=== PATIENT | male | born 1965 | race Caucasian/White ===

== ENCOUNTER 2018-05-31 13:58 | Inpatient (IN) | payer OTHER ==
[~2018-05-31] VITALS: Ht 172.7 cm; Wt 104.3 kg
[2018-05-31] MEDS ORDERED: JARDIANCE25 MG PO (14:15)
[2018-05-31] MEDS ORDERED: VICTOZA 3-0.6 MG/0.1 SQ (14:16)
[2018-05-31] MEDS ORDERED: TOPROL XL50 MG PO (14:16)
[2018-05-31] MEDS ORDERED: LISINOPRIL20 MG PO (14:16)
[2018-05-31] MEDS ORDERED: ADULT ASPIRIN81 MG PO (14:17)
[2018-05-31] MEDS ORDERED: FORTAMET1000 MG PO (14:17)
[2018-05-31] MEDS ORDERED: PRAVASTATIN SOD40 MG PO (14:17)
[2018-06-05] MEDS ORDERED: INVANZ1 GM IV (06:56)
== END 2018-06-05 11:02 | disposition home health service (06) | DRG 572 ==
LOC: ER 13:58 → MEDI 19:08 → SEC-K 19:08 → MEDI 20:33 → MEDJ 06-01 18:55
PROVIDERS: Specialist
PROC: 5A09557 Assistance with Respiratory Ventilation, Greater than 96 Consecutive Hours, Continuous Positive Airway Pressure (ICD-10-PCS; 2018-05-31)
PROC: 8E0ZXY6 Isolation (ICD-10-PCS; 2018-06-01)
PROC: 0JBP0ZZ Excision of Left Lower Leg Subcutaneous Tissue and Fascia, Open Approach (ICD-10-PCS; principal; 2018-06-01 12:00)
PROC: 02HV33Z Insertion of Infusion Device into Superior Vena Cava, Percutaneous Approach (ICD-10-PCS; 2018-06-04)
DX: L97.828 Non-pressure chronic ulcer of other part of left lower leg with other specified severity (principal); B96.29 Other Escherichia coli [E. coli] as the cause of diseases classified elsewhere; Z16.12 Extended spectrum beta lactamase (ESBL) resistance; E66.8 Other obesity; I10 Essential (primary) hypertension; E11.9 Type 2 diabetes mellitus without complications; Z95.1 Presence of aortocoronary bypass graft

== ENCOUNTER 2022-01-27 15:08 | Inpatient (IN) | payer OTHER ==
[~2022-01-27] VITALS: Ht 172.7 cm; Wt 113.4 kg
[~2022-01-27 15:08] MED LIST: ADULT ASPIRIN81 MG PO; FORTAMET1000 MG PO; INVANZ1 GM IV; JARDIANCE25 MG PO; LISINOPRIL20 MG PO; PRAVASTATIN SOD40 MG PO; TOPROL XL50 MG PO; VICTOZA 3-0.6 MG/0.1 SQ
[2022-02-08] MEDS ORDERED: CEPHALEXIN500 MG PO (14:09)
[2022-02-08] MEDS ORDERED: INTESTINEX680 M1 PO (14:09)
[2022-02-08] MEDS ORDERED: PRE PROTEIN 2030 ML PO (14:09)
[2022-02-08] MEDS ORDERED: BUMETANIDE1 MG PO (14:09)
[2022-02-08] MEDS ORDERED: FLUCONAZOLE100 MG PO (14:09)
[2022-02-08] MEDS ORDERED: CIPRO500 MG PO (14:09)
== END 2022-02-08 22:59 | disposition home or self-care (01) | DRG 809 ==
LOC: ER 15:08 → SEC-K 22:53 → SURH 22:53
PROVIDERS: ADMIT Internal Medicine; ATTEND Internal Medicine
PROC: 30233N1 Transfusion of Nonautologous Red Blood Cells into Peripheral Vein, Percutaneous Approach (ICD-10-PCS; principal; 2022-01-28)
PROC: 4A12X45 Monitoring of Cardiac Electrical Activity, Ambulatory, External Approach (ICD-10-PCS; 2022-01-28)
PROC: 3E10X8Z Irrigation of Skin and Mucous Membranes using Irrigating Substance (ICD-10-PCS; 2022-01-28)
PROC: B24BYZZ Ultrasonography of Heart with Aorta using Other Contrast (ICD-10-PCS; 2022-01-29)
PROC: 02H633Z Insertion of Infusion Device into Right Atrium, Percutaneous Approach (ICD-10-PCS; 2022-02-01)
DX: D61.810 Antineoplastic chemotherapy induced pancytopenia (principal); L97.819 Non-pressure chronic ulcer of other part of right lower leg with unspecified severity; L97.829 Non-pressure chronic ulcer of other part of left lower leg with unspecified severity; C90.00 Multiple myeloma not having achieved remission; E46 Unspecified protein-calorie malnutrition; T45.1X5A Adverse effect of antineoplastic and immunosuppressive drugs, initial encounter; D50.0 Iron deficiency anemia secondary to blood loss (chronic); D70.1 Agranulocytosis secondary to cancer chemotherapy; D61.818 Other pancytopenia; I83.018 Varicose veins of right lower extremity with ulcer other part of lower leg; I83.028 Varicose veins of left lower extremity with ulcer other part of lower leg; L89.159 Pressure ulcer of sacral region, unspecified stage; E11.51 Type 2 diabetes mellitus with diabetic peripheral angiopathy without gangrene; D63.0 Anemia in neoplastic disease; D64.9 Anemia, unspecified; G89.3 Neoplasm related pain (acute) (chronic); I11.9 Hypertensive heart disease without heart failure; I25.10 Atherosclerotic heart disease of native coronary artery without angina pectoris; E77.8 Other disorders of glycoprotein metabolism; E66.01 Morbid (severe) obesity due to excess calories; Z74.01 Bed confinement status; Z93.2 Ileostomy status; Z79.84 Long term (current) use of oral hypoglycemic drugs; Z79.4 Long term (current) use of insulin; Z53.29 Procedure and treatment not carried out because of patient's decision for other reasons

== ENCOUNTER 2022-04-15 19:44 | Inpatient (IN) | payer OTHER ==
[~2022-04-15] VITALS: Ht 172.7 cm; Wt 158.8 kg
[~2022-04-15 19:44] MED LIST changes: +BUMETANIDE1 MG PO; +CEPHALEXIN500 MG PO; +CIPRO500 MG PO; +FLUCONAZOLE100 MG PO; +INTESTINEX680 M1 PO; +PRE PROTEIN 2030 ML PO
[2022-04-15] MEDS ORDERED: NINLARO4 MG PO (20:12)
[2022-04-19] MEDS ORDERED: LANTUS SOL100 UNIT/1 (15:30)
[2022-04-19] MEDS ORDERED: ATORVASTATIN CA40 MG (15:30)
[2022-04-19] MEDS ORDERED: REVLIMID25 MG (15:30)
[2022-04-19] MEDS ORDERED: FOLIC ACID1 MG (15:30)
[2022-04-19] MEDS ORDERED: DEXAMETHASONE4 MG (15:30)
[2022-04-19] MEDS ORDERED: NINLARO4 MG (15:30)
[2022-04-19] MEDS ORDERED: BUMETANIDE1 MG (15:30)
[2022-04-19] MEDS ORDERED: ABATINEX680 MG (15:31)
[2022-04-19] MEDS ORDERED: FERROUS SULFAT325 MG (15:31)
[2022-04-19] MEDS ORDERED: CARVEDILOL6.25 M1 (15:31)
== END 2022-04-28 16:56 | disposition home or self-care (01) | DRG 812 ==
LOC: ER 19:44 → ICU-2 22:58 → MEDJ 04-20 11:13 → ICU-2 04-20 11:14 → MEDJ 04-21 16:15
PROVIDERS: ADMIT Internal Medicine; ATTEND Internal Medicine
PROC: 8E0ZXY6 Isolation (ICD-10-PCS; principal; 2022-04-16)
PROC: 30233N1 Transfusion of Nonautologous Red Blood Cells into Peripheral Vein, Percutaneous Approach (ICD-10-PCS; 2022-04-18)
PROC: 05HY33Z Insertion of Infusion Device into Upper Vein, Percutaneous Approach (ICD-10-PCS; 2022-04-18)
PROC: 4A12X4Z Monitoring of Cardiac Electrical Activity, External Approach (ICD-10-PCS; 2022-04-21)
DX: D50.0 Iron deficiency anemia secondary to blood loss (chronic) (principal); T83.518A Infection and inflammatory reaction due to other urinary catheter, initial encounter; N39.0 Urinary tract infection, site not specified; C90.00 Multiple myeloma not having achieved remission; D64.9 Anemia, unspecified; B96.1 Klebsiella pneumoniae [K. pneumoniae] as the cause of diseases classified elsewhere; D64.81 Anemia due to antineoplastic chemotherapy; L89.159 Pressure ulcer of sacral region, unspecified stage; L89.899 Pressure ulcer of other site, unspecified stage; E11.51 Type 2 diabetes mellitus with diabetic peripheral angiopathy without gangrene; E66.01 Morbid (severe) obesity due to excess calories; Z68.33 Body mass index [BMI] 33.0-33.9, adult; I11.9 Hypertensive heart disease without heart failure; Z74.01 Bed confinement status; Z53.29 Procedure and treatment not carried out because of patient's decision for other reasons; Z79.84 Long term (current) use of oral hypoglycemic drugs; Z93.3 Colostomy status

== ENCOUNTER 2022-10-04 17:07 | Inpatient (IN) | payer OTHER ==
[~2022-10-04] VITALS: Ht 172.7 cm; Wt 108.9 kg
[~2022-10-04 17:07] MED LIST changes: +ABATINEX680 MG; +ATORVASTATIN CA40 MG; +BUMETANIDE1 MG; +CARVEDILOL6.25 M1; +DEXAMETHASONE4 MG; +FERROUS SULFAT325 MG; +FOLIC ACID1 MG; +LANTUS SOL100 UNIT/1; +NINLARO4 MG; +NINLARO4 MG PO; +REVLIMID25 MG
--- NOTE | 2022-10-04 19:15 | NUR ---
SE RECIBE PTE ALERTA Y ORIENTADO X 3 ESFERAS SIN DIFICULTAD RESP EN AMBULANCIA POR ANEMIA REFERIDO POR DRA Cathy BRANDON.PTE CON MONAHAN TRAIDO DEL HOGAR QUE PRSENTA ORINA TAQUERIA,OSTOMIA EN LADO LT.SE LE OFRECE [place] MEDICO EL CUAL REFIERE ENTENDER IMCLUYENDO TRANSUSION E INDICA DESEA SE LE REALICE ELLEN LINEA CENTRAL ANTES DE [place] MEDICO.SE LE NOTIFICA A DR PARRA,SE REALIZA EKG PENDIENTE.
--- NOTE | 2022-10-04 23:01 | NUR ---
1045PM PTE AUTORIZA A LAZ MUESTRAS,SE REALIZA BAJO MEDIDAS ASEPTICAS.SE DESIRE TUBOS PILOTOS PARA 4 UNIDADES DE PRBC NOTIFICADAS A MS STEWART DE [facility] A[facility]ILIO M[facility]UO.
[2022-10-05] MEDS ORDERED: FUSION PLUS CA1 EACH (08:06)
[2022-10-05] MEDS ORDERED: OXYC1TAB9 (08:06)
[2022-10-05] MEDS ORDERED: SILVER SULFADIA50 GM (08:07)
[2022-10-05] MEDS ORDERED: PRE PROTEIN1 EACH (08:07)
== END 2022-10-08 13:19 | disposition home or self-care (01) | DRG 841 ==
LOC: ER 17:07 → SURH 21:17 → SEC-K 21:17 → SURH 10-05 01:27
PROVIDERS: ADMIT Internal Medicine; ATTEND Internal Medicine
PROC: 30233N1 Transfusion of Nonautologous Red Blood Cells into Peripheral Vein, Percutaneous Approach (ICD-10-PCS; principal; 2022-10-05)
PROC: 06HM33Z Insertion of Infusion Device into Right Femoral Vein, Percutaneous Approach (ICD-10-PCS; 2022-10-05)
DX: C90.00 Multiple myeloma not having achieved remission (principal); L97.818 Non-pressure chronic ulcer of other part of right lower leg with other specified severity; D63.0 Anemia in neoplastic disease; D63.1 Anemia in chronic kidney disease; D50.0 Iron deficiency anemia secondary to blood loss (chronic); I25.10 Atherosclerotic heart disease of native coronary artery without angina pectoris; I11.9 Hypertensive heart disease without heart failure; E78.5 Hyperlipidemia, unspecified; Z20.822 Contact with and (suspected) exposure to COVID-19; Z95.1 Presence of aortocoronary bypass graft; L08.89 Other specified local infections of the skin and subcutaneous tissue; B96.4 Proteus (mirabilis) (morganii) as the cause of diseases classified elsewhere; B95.61 Methicillin susceptible Staphylococcus aureus infection as the cause of diseases classified elsewhere; Z74.01 Bed confinement status; I87.2 Venous insufficiency (chronic) (peripheral); I73.9 Peripheral vascular disease, unspecified

== ENCOUNTER 2022-10-25 13:39 | Inpatient (IN) | payer OTHER ==
[~2022-10-25] VITALS: Ht 152.4 cm; Wt 136.1 kg
[~2022-10-25 13:39] MED LIST changes: +FUSION PLUS CA1 EACH; +OXYC1TAB9; +PRE PROTEIN1 EACH; +SILVER SULFADIA50 GM
[2022-10-27] MEDS ORDERED: SPIRONOLACTONE25 MG (08:26)
== END 2022-11-05 00:01 | disposition home or self-care (01) | DRG 871 ==
LOC: ER 13:39 → ICU-2 19:17 → ICU 19:17 → MEDJ 11-04 03:23 → ICU 11-04 07:25
PROVIDERS: ADMIT Internal Medicine; ATTEND Internal Medicine
PROC: 30233N1 Transfusion of Nonautologous Red Blood Cells into Peripheral Vein, Percutaneous Approach (ICD-10-PCS; principal; 2022-10-25)
PROC: 4A12X4Z Monitoring of Cardiac Electrical Activity, External Approach (ICD-10-PCS; 2022-10-25)
PROC: 3E0F7SF Introduction of Other Gas into Respiratory Tract, Via Natural or Artificial Opening (ICD-10-PCS; 2022-10-25)
PROC: 30233R1 Transfusion of Nonautologous Platelets into Peripheral Vein, Percutaneous Approach (ICD-10-PCS; 2022-10-28)
PROC: 06HM33Z Insertion of Infusion Device into Right Femoral Vein, Percutaneous Approach (ICD-10-PCS; 2022-10-31)
DX: A41.1 Sepsis due to other specified staphylococcus (principal); R57.1 Hypovolemic shock; R65.21 Severe sepsis with septic shock; D61.818 Other pancytopenia; B37.49 Other urogenital candidiasis; C90.00 Multiple myeloma not having achieved remission; N17.8 Other acute kidney failure; I25.810 Atherosclerosis of coronary artery bypass graft(s) without angina pectoris; Z68.42 Body mass index [BMI] 45.0-49.9, adult; L03.116 Cellulitis of left lower limb; E87.1 Hypo-osmolality and hyponatremia; A41.89 Other specified sepsis; B37.7 Candidal sepsis; E87.5 Hyperkalemia; I95.89 Other hypotension; D50.0 Iron deficiency anemia secondary to blood loss (chronic); D64.81 Anemia due to antineoplastic chemotherapy; D69.59 Other secondary thrombocytopenia; D63.0 Anemia in neoplastic disease; L89.159 Pressure ulcer of sacral region, unspecified stage; L89.629 Pressure ulcer of left heel, unspecified stage; L98.499 Non-pressure chronic ulcer of skin of other sites with unspecified severity; I87.2 Venous insufficiency (chronic) (peripheral); E11.21 Type 2 diabetes mellitus with diabetic nephropathy; E11.65 Type 2 diabetes mellitus with hyperglycemia; E66.01 Morbid (severe) obesity due to excess calories; B96.1 Klebsiella pneumoniae [K. pneumoniae] as the cause of diseases classified elsewhere; D70.1 Agranulocytosis secondary to cancer chemotherapy; I11.9 Hypertensive heart disease without heart failure; Z74.01 Bed confinement status; Z79.4 Long term (current) use of insulin; Z79.84 Long term (current) use of oral hypoglycemic drugs; Z93.3 Colostomy status; Z95.1 Presence of aortocoronary bypass graft; Z92.3 Personal history of irradiation; Z92.21 Personal history of antineoplastic chemotherapy

== ENCOUNTER 2022-11-17 11:34 | Inpatient (IN) | payer OTHER ==
[~2022-11-17] VITALS: Ht 172.7 cm; Wt 136.1 kg
[~2022-11-17 11:34] MED LIST changes: +SPIRONOLACTONE25 MG
== END 2022-12-15 20:25 | disposition home or self-care (01) | DRG 264 ==
LOC: ER 11:34 → MEDJ 18:16
PROVIDERS: ADMIT Internal Medicine; ATTEND Internal Medicine
PROC: B54MZZZ Ultrasonography of Right Upper Extremity Veins (ICD-10-PCS; 2022-11-17)
PROC: 06HM33Z Insertion of Infusion Device into Right Femoral Vein, Percutaneous Approach (ICD-10-PCS; 2022-11-18)
PROC: 0JBG0ZZ Excision of Right Lower Arm Subcutaneous Tissue and Fascia, Open Approach (ICD-10-PCS; principal; 2022-11-19)
PROC: 0JBG0ZZ Excision of Right Lower Arm Subcutaneous Tissue and Fascia, Open Approach (ICD-10-PCS; 2022-11-23)
PROC: 0JDG0ZZ Extraction of Right Lower Arm Subcutaneous Tissue and Fascia, Open Approach (ICD-10-PCS; 2022-11-30)
PROC: 30233N1 Transfusion of Nonautologous Red Blood Cells into Peripheral Vein, Percutaneous Approach (ICD-10-PCS; 2022-12-05)
PROC: 0JBG0ZZ Excision of Right Lower Arm Subcutaneous Tissue and Fascia, Open Approach (ICD-10-PCS; 2022-12-06)
PROC: 0JDG0ZZ Extraction of Right Lower Arm Subcutaneous Tissue and Fascia, Open Approach (ICD-10-PCS; 2022-12-07)
PROC: 2W1CX6Z Compression of Right Lower Arm using Pressure Dressing (ICD-10-PCS; 2022-12-07)
PROC: 2W0CX6Z Change Pressure Dressing on Right Lower Arm (ICD-10-PCS; 2022-12-12)
PROC: 0JDG0ZZ Extraction of Right Lower Arm Subcutaneous Tissue and Fascia, Open Approach (ICD-10-PCS; 2022-12-14)
DX: E11.52 Type 2 diabetes mellitus with diabetic peripheral angiopathy with gangrene (principal); L98.498 Non-pressure chronic ulcer of skin of other sites with other specified severity; L03.113 Cellulitis of right upper limb; I96 Gangrene, not elsewhere classified; C90.30 Solitary plasmacytoma not having achieved remission; D84.821 Immunodeficiency due to drugs; N17.9 Acute kidney failure, unspecified; N39.0 Urinary tract infection, site not specified; Z16.30 Resistance to unspecified antimicrobial drugs; Z68.42 Body mass index [BMI] 45.0-49.9, adult; G89.3 Neoplasm related pain (acute) (chronic); E11.622 Type 2 diabetes mellitus with other skin ulcer; L97.529 Non-pressure chronic ulcer of other part of left foot with unspecified severity; L97.519 Non-pressure chronic ulcer of other part of right foot with unspecified severity; E11.65 Type 2 diabetes mellitus with hyperglycemia; D63.0 Anemia in neoplastic disease; D50.0 Iron deficiency anemia secondary to blood loss (chronic); E66.01 Morbid (severe) obesity due to excess calories; E11.22 Type 2 diabetes mellitus with diabetic chronic kidney disease; I12.9 Hypertensive chronic kidney disease with stage 1 through stage 4 chronic kidney disease, or unspecified chronic kidney disease; N18.9 Chronic kidney disease, unspecified; D70.1 Agranulocytosis secondary to cancer chemotherapy; L89.159 Pressure ulcer of sacral region, unspecified stage; Z53.29 Procedure and treatment not carried out because of patient's decision for other reasons; Z79.4 Long term (current) use of insulin; Z95.5 Presence of coronary angioplasty implant and graft; Z93.3 Colostomy status; Z79.899 Other long term (current) drug therapy; Z74.01 Bed confinement status; B96.4 Proteus (mirabilis) (morganii) as the cause of diseases classified elsewhere; B95.2 Enterococcus as the cause of diseases classified elsewhere; B96.89 Other specified bacterial agents as the cause of diseases classified elsewhere; B96.1 Klebsiella pneumoniae [K. pneumoniae] as the cause of diseases classified elsewhere

== ENCOUNTER 2023-03-25 23:32 | Inpatient (IN) | payer OTHER ==
[2023-03-26] MEDS ORDERED: VITAMIN D310 MCG/1 M (00:30)
[2023-03-26] MEDS ORDERED: LEVOTHYROXINE25 MCG (00:30)
[2023-03-26] MEDS ORDERED: VITAMIN C500 M6 (00:30)
[2023-03-26] MEDS ORDERED: B-121000 MC1 (00:31)
--- NOTE | 2023-03-26 00:31 | NUR ---
SE RECIBE PTE ALERTA Y ORIENTADO EN REBA KATHY ESFERAS, EL CUAL LLEGA EN AMBULANCIA, EN COMPANIA DE ESPOSA, QUIEN REFIERE HIPOTENSION Y FIEBRE. PTE PRESENTA TEMPERATURA 101.0, DXT-311MG/DL. FAMILIAR Y PTE AMBOS INDICAN DEBILIDAD EN BRAZO LT Y QUE EL MISMO NO SE PUEDE UTILIZAR. PTE CON OSTOMIA EN LUQ. ULCERA EN BRAZO RT CONECTADA A SUCCION. SE OBSERVAN PIERNAS CON EDEMA, ERITEMA, CALIENTES AL TACTO Y ELIMINANDO SECRECIONES COLOR AMARILLO, FETIDO. PTE REFIERE ULCERA SACRAL, FOSTER EL MISMO REHUSA EL QUE SE CAMBIE DE POSICION PARA EVALUAR LA MISMA. PTE CON MONAHAN CON FECHA DE 03/20/23 SE OBSERVA EL MISMO CON ORINA AMARILLO TURBIO CON SEDIMENTACION Y CON IRRIGACION CONTINUA. SE REALIZA EKG, SE PRESENTA A DR MATUTE Y SE UBICA EN AREA DE CRITICO, CONECTADO A MONITOR CARDIACO Y OXIMETRIA DE PULSO. SE OBSERVA BENDAJE EN EL CENTRO DEL PECHO EL MISMO LIMPIO Y SECO PTE REFIERE QUE TUVO OPERACION CARDIACA LA CUAL SE LE ABRIO EN NOV2021.
--- NOTE | 2023-03-26 01:36 | NUR ---
SE RECIBE PACIENTE AL AREA DE CRITICO #2, SE COLOCA EN KRISHAN #3. SE CONECTA A MONITOR CARDIACO CON SATUROMETRO. SE MIDEN S/V Y SE NOTIFICA B/P A DR MATUTE SE ORIENTA PACIENTE DE TRATAMIENTO SORIN ORDEN MEDICA. REFIERE ENTENDER. SE REALIZAN MUESTRAS CON MEDIDAS ASEPTICAS CORRESPONDIENTES. SE INTENTA CANALIZAR EN 2 OCASIONES NO ES POSIBLE POR LO CUAL SE INDICA A MIS TARI RN LA CUAL INTENTA EN 4 OCASIONES Y NO FUE POSIBLE CANALIZAR PACIENTE SE NOTIFICA A DR MATUTE. SE NOTIFICA DEXTRO EN 311MG/DL A DR MATUTE,NO EMITE ORDENES. PACIENTE CON BARANDAS ELEVADAS POR TAN SEGURIDAD. SE MONITOREA EN TURNO POR CAMBIOS SIGNIFICATIVOS B/P Y DEXTRO.
--- NOTE | 2023-03-26 03:08 | NUR ---
SE ORIENTA A PACIENTE SOBRE ORDEN MEDICA DE TRANFUSION EL MISMO REHUSA TRANFUSION HASTA QUE MEDICO DE TURNO SE COMUNICO CON TAN ONCOLOGA. SE LE NOTIFICA A
--- NOTE | 2023-03-26 03:26 | NUR ---
SE RICKY REQUISICION DE [facility] EN LABORATORIO. SE LLAMA A [facility] Y SE NOTIFICA A MS STEWART 3:25AM QUE SE DEJO REQUISICION EN EL LABORATORIO.
--- NOTE | 2023-03-26 06:03 | NUR ---
SE LE OFRECE ASEO PERSONAL A PACIENTE EL MISMO LO REHUSA NO QUIERE QUE LO MUEVAN.
--- NOTE | 2023-03-26 06:44 | NUR ---
SE LLAMA A [facility] A NOTIFICAR CAMBIO EN ORDEN MEDIA MS DEEJAY ME NOTIFICA QUE PACIENTE ES A POSITIVO QUE NO SE UTILIZAN GRUPOS ALTERNOS.
--- NOTE | 2023-03-26 07:28 | NUR ---
7:00AM SE RECIBE PTE ALERTA Y ORIENTADO X3 EN CAMA BAJA CON BARANDA ELEVADAS. PTE CANALIZADO EN EL LADO DERECHO CON ANGIO #20 RECIBIENDO LEVOPHED 8MG/250ML BAJANDO A 10ML/HR Y ANGIO #22 RECIBIENDO .9NSS BAJANDO A 120ML/HR. EXTREMIDADES SUPERIORES CON EDEMA Y ULCERA EN BRAZO DERECHO DERECHO CONECTADA A SUCCION. PTE CONECTADO A MONITOR CARDIACO HR:76LAT/ MIN SAT:99 RR:13. ABDOMEN BLANDO AL TACTO. VENDAJE EN EL CENTRO DEL PECHO LIMPIO Y SECO. PTE CON COLONOSTOMIA EN LUQ. SE OBSEWRVA MONAHAN DRENANDO ORINA COLOR AMRILLO TURBIO CON SEDIMENTACIO CON IRRIGACION. EXTREMIDADES INFERIORES CON EDEMAS, ERITEMAS, CALIENTE AL TACTO Y ELIMINANDO SECRECIONES COLOR AMARILLO, FETIDO. SE MIDEN S/V Y SE REPORTAN. PACIENTE EN ESPERA POR EL DR. BRENDON BYRNE.
--- NOTE | 2023-03-26 12:06 | NUR ---
9:30AM' SE LLAMA A [facility] Y SE LE COMUNICA A DAVID. OROZCO LA ORDEN DE 2PRBC FRANCIONADA. SE ENVIA REQUISION DE 2PRBC FRANCIONADA POR FAX A [facility] Y A LABORATORIO. MUESTRA PREVIA VIGENTE EN BANCO.
[2023-03-31] MEDS ORDERED: INTEGRA PLUS C1 EACH PO (21:18)
[2023-03-31] MEDS ORDERED: DOCUSATE SODIU100 MG PO (21:18)
[2023-03-31] MEDS ORDERED: PROTONIX20 MG PO (21:19)
[2023-03-31] MEDS ORDERED: COZAAR25 MG PO (21:20)
[2023-03-31] MEDS ORDERED: GLUMETZA1000 MG PO (21:21)
[2023-03-31] MEDS ORDERED: FLUCONAZOLE200 MG PO (21:24)
[2023-03-31] MEDS ORDERED: LEVO-T75 MCG PO (21:25)
[2023-03-31] MEDS ORDERED: LIPITOR40 M1 PO (21:27)
== END 2023-04-01 14:37 | disposition home or self-care (01) | DRG 871 ==
LOC: ER 23:32 → ICU 03-26 17:03 → ICU-2 03-26 17:03 → ICU 03-26 20:40 → SURH 03-29 21:26
PROVIDERS: ADMIT Internal Medicine; ATTEND Internal Medicine
PROC: 4A12X4Z Monitoring of Cardiac Electrical Activity, External Approach (ICD-10-PCS; 2023-03-26)
PROC: 30243N1 Transfusion of Nonautologous Red Blood Cells into Central Vein, Percutaneous Approach (ICD-10-PCS; 2023-03-26)
PROC: 3E0F7SF Introduction of Other Gas into Respiratory Tract, Via Natural or Artificial Opening (ICD-10-PCS; 2023-03-26)
PROC: 8E0ZXY6 Isolation (ICD-10-PCS; principal; 2023-03-27)
PROC: BV44ZZZ Ultrasonography of Scrotum (ICD-10-PCS; 2023-03-27)
PROC: 05HM33Z Insertion of Infusion Device into Right Internal Jugular Vein, Percutaneous Approach (ICD-10-PCS; 2023-03-27)
PROC: B543ZZA Ultrasonography of Right Jugular Veins, Guidance (ICD-10-PCS; 2023-03-27)
DX: A41.51 Sepsis due to Escherichia coli [E. coli] (principal); L89.154 Pressure ulcer of sacral region, stage 4; R65.21 Severe sepsis with septic shock; B37.49 Other urogenital candidiasis; C90.00 Multiple myeloma not having achieved remission; N17.8 Other acute kidney failure; Z68.45 Body mass index [BMI] 70 or greater, adult; B37.7 Candidal sepsis; D50.0 Iron deficiency anemia secondary to blood loss (chronic); D63.0 Anemia in neoplastic disease; E11.622 Type 2 diabetes mellitus with other skin ulcer; L98.499 Non-pressure chronic ulcer of skin of other sites with unspecified severity; E11.628 Type 2 diabetes mellitus with other skin complications; E11.65 Type 2 diabetes mellitus with hyperglycemia; I13.10 Hypertensive heart and chronic kidney disease without heart failure, with stage 1 through stage 4 chronic kidney disease, or unspecified chronic kidney disease; E11.22 Type 2 diabetes mellitus with diabetic chronic kidney disease; N18.9 Chronic kidney disease, unspecified; E88.09 Other disorders of plasma-protein metabolism, not elsewhere classified; N50.89 Other specified disorders of the male genital organs; E83.42 Hypomagnesemia; E03.9 Hypothyroidism, unspecified; E66.01 Morbid (severe) obesity due to excess calories; Z74.01 Bed confinement status; Z79.4 Long term (current) use of insulin; Z93.3 Colostomy status; Z92.21 Personal history of antineoplastic chemotherapy

== ENCOUNTER 2023-09-22 13:52 | Inpatient (IN) | payer OTHER ==
[~2023-09-22] VITALS: Ht 175.3 cm; Wt 136.1 kg
[~2023-09-22 13:52] MED LIST changes: +B-121000 MC1; +COZAAR25 MG PO; +DOCUSATE SODIU100 MG PO; +FLUCONAZOLE200 MG PO; +GLUMETZA1000 MG PO; +INTEGRA PLUS C1 EACH PO; +LEVO-T75 MCG PO; +LEVOTHYROXINE25 MCG; +LIPITOR40 M1 PO; +PROTONIX20 MG PO; +VITAMIN C500 M6; +VITAMIN D310 MCG/1 M
--- NOTE | 2023-09-22 14:11 | NUR ---
SE RECIBE PACIENTE EN AMBULANCIA ALERTA Y ORIENTADO X3, REFIERE HABERSE REALIZADO UN DEXTROSTICK OBTENIENDO 600 MG/DL PARAMEDICOS INDICAN QUE ADMINISTRARON 20 UNIDADES SUBQ. SE DESIRE VS, SE REALIZA DXT Y SE UBICA
[2023-09-22] MEDS ORDERED: 0.9 % SODIUM CHLORIDE 1,000 ML IV SCH ×2 (14:15→22:15)
--- NOTE | 2023-09-22 16:10 | NUR ---
SE RECIBE PTE ALERTA ORIENTADO X3 EN CAMA CON BARANDAS ELEVADAS POR TAN SEGURIDAD.SE DESIRE MUESTRAS DE LABORATORIO USANDO MEDIDAS ASEPTICAS.PTE REHUSA CANALIZACION YA QUE DESEA RADHA LINEA CENTRAL Y [place] AL MOMENTO.SE ORIENTA PTE SOBRE OBJETIVO DE [place] MEDICO.SE REALIZA REQUISION DE 3 UNIDADES DE PRBC FRACCIONADAS.
[2023-09-22 16:44] LABS: URINE APPEARANCE Turbid; URINE BILIRRUBIN Negative (NEGATIVE); URINE BLOOD Small; URINE COLOR Yellow; URINE LEUKOCYTE Moderate; URINE NITRATE Negative; URINE PROTEIN 30 (NEGATIVE); URINE UROBILINOGEN 0.2 E.U./dl
[2023-09-22 16:47] LABS: URINE BACTERIA 3715.6 uL (0.0-1933); URINE EPITHELIAL CELLS 9.7 uL (0.0-38.8); URINE RBC 19.9 uL (0.0-20.8); URINE WBC 3663.4 uL (0.0-23.2)
[2023-09-22 16:54] LABS: MEAN CELL VOLUME 77.7 fL (80.0-100.00); MEAN CORPUSCULAR HGB CONC 30.4 g/dl (32.0-36.0); RED BLOOD COUNT 2.48 M/uL (4.00-6.00)
[2023-09-22 16:57] LABS: MEAN CORPUSCULAR HEMOGLOBIN 23.7 pg (27.00-32.0)
[2023-09-22 16:58] LABS: HEMATOCRIT 19.2 % (39.0-48.0); HEMOGLOBIN 5.9 g/dL (13-16.00)
[2023-09-22 16:59] LABS: INR 1.13; PARTIAL THROMBOPLASTIN TIME 32.9 SECONDS (22.0-34.0); PLATELET COUNT 93 K/uL (150-450); PROTHROMBIN TIME 11.8 SECONDS (9.0-11.5)
[2023-09-22 17:01] LABS: URINE GLUCOSE >=1000 MG/DL (NEGATIVE); URINE YEAST FEW /hpf
[2023-09-22 17:07] LABS: RED CELL DISTRIBUTION WIDTH 21.2 % (11.5-14.5)
[2023-09-22 17:11] LABS: ALBUMIN 1.7 gm/dL (3.4-5.0); BILIRUBIN TOTAL 0.37 mg/dL (0.3-1.2); CALCIUM 7.8 mg/dL (8.5-10.1); CREATININE SERUM 1.16 mg/dL (0.70-1.30); GFR 64.22; GLOBULINA 2.5 G/DL (2.4-3.5); POTASSIUM 3.79 mEq/L (3.5-5.1); TOTAL PROTEIN 4.2 gm/dL (6.4-8.2)
[2023-09-22] MEDS ORDERED: INSULIN REGULAR, HUMAN 300 UNITS/3 ML UNITS SUBCUTANEO ONE (17:45)
--- NOTE | 2023-09-22 21:00 | NUR ---
20:30 SE RECIBE PTE ALERTA Y ORIENTADO X3 AL CUBICULO #[address] MATUTE PTE CONECTADO A MONITOR CARDIACO Y OXIMETRIA CON DIAGNOSTICO DE ANEMIA, SE OBSERVA EXTREMIDADES SUP CON EDEMAS SIN LACERACION ANGIO PTE REHUZA EL MISMO CON ABDOMEN Y DEPRESIBLE AL TACTO CON EXT INFERIORES EDEMATOSAS SIN LACERACION CON IRRIGACION CONTINUA CONECTADO AL MONAHAN. SE BIBI SHRUTHI PREVENTIVA POR ALGUN CAMBIO SIGNIFICATIVO. 21:16 SE REALIZA DEXTRO LA CUAL TIENE 501 SE NOTIFICA A DRA. MANTILLA INTERNISTA 21:19 PERSONA DE LAB LLAMA PARA NOTIFICAR QUE LA KIERSTEN LLEGGO, SE ORIENTA PTE SOBRE LA IMPORTANCIA DE CANALIZARLO EL MISMO REFIERE REHUZAR [place] ESPERAR POR LA LINEA CENTRAL.
[2023-09-22] MEDS ORDERED: INSULIN LISPRO 1,000 UNIT/10 ML UNITS SUBCUTANEO PRN (22:15)
[2023-09-22] MEDS ORDERED: METHYLPREDNISOLONE SOD SUCC 40 MG VIAL IV PRN (22:15)
[2023-09-22] MEDS ORDERED: FUROsemide 20 MG/2 ML VIAL IV SCH (22:15)
[2023-09-22] MEDS ORDERED: DEXTROSE 50 % IN WATER 0.5 G/ML DISP.SYRIN IV PRN (22:15)
[2023-09-22] MEDS ORDERED: DIPHENHYDRAMINE HCL 50 MG/ML VIAL 1ML IV PRN (22:15)
[2023-09-22] MEDS ORDERED: levoFLOXacin IN DEXTROSE 5 % 150 ML IV SCH (22:18)
[2023-09-22] MEDS ORDERED: ONDANSETRON HCL 4 MG in 0.9 % SODIUM CHLORIDE 50 ML IV PRN (22:30)
[2023-09-22] MEDS ORDERED: Pregabalin 50 MG CAPSULE PO PRN ×2 (22:30→22:32)
[2023-09-22] MEDS ORDERED: OxyCODONE HCL/APAP UD (PERCOCET) PO PRN (22:30)
[2023-09-22] MEDS ORDERED: ENALAPRILAT DIHYDRATE 2.5 MG/2 ML VIAL IV PRN (22:30)
[2023-09-22] MEDS ORDERED: ACETAMINOPHEN 500 MG GEL..CAP PO PRN (22:30)
[2023-09-23 01:07] LABS: RH POSITIVE
[2023-09-23] MEDS ORDERED: NOREPINEPHRINE BITARTRATE 1 MG/ML AMPUL IV SCH (01:45)
[2023-09-23] MEDS ORDERED: LEVOTHYROXINE SODIUM 25 MCG TABLET PO SCH (06:00)
[2023-09-23] MEDS ORDERED: AMINO ACIDS 1 EACH TABLET PO SCH (09:00)
[2023-09-23] MEDS ORDERED: ATORVASTATIN CALCIUM 20 MG TABLET PO SCH (09:00)
[2023-09-23] MEDS ORDERED: LISINOPRIL 20 MG TABLET PO SCH ×2 (09:00)
[2023-09-23] MEDS ORDERED: FAMOTIDINE/PF 20 MG in 0.9 % SODIUM CHLORIDE 8 ML IV PUSH SCH (09:00)
[2023-09-23] MEDS ORDERED: ENALAPRILAT DIHYDRATE 1.25 MG/ML VIAL IV PRN (09:30)
[2023-09-23] MEDS ORDERED: NOREPINEPHRINE BITARTRATE 8 MG in DEXTROSE 5 % IN WATER 250 ML IV SCH (09:30)
[2023-09-23 19:13] LABS: MEAN CELL VOLUME 76.2 fL (80.0-100.00); MEAN CORPUSCULAR HGB CONC 31.7 g/dl (32.0-36.0); PLATELET COUNT 209 K/uL (150-450); RED BLOOD COUNT 2.77 M/uL (4.00-6.00); RED CELL DISTRIBUTION WIDTH 21.4 % (11.5-14.5)
[2023-09-23 19:17] LABS: HEMATOCRIT 21.1 % (39.0-48.0); HEMOGLOBIN 6.7 g/dL (13-16.00); MEAN CORPUSCULAR HEMOGLOBIN 24.1 pg (27.00-32.0)
[2023-09-23 19:21] LABS: ERYTHROCYTE SEDIMENTATION RATE > 130 mm/hr
[2023-09-23 19:34] LABS: INR 1.06; PARTIAL THROMBOPLASTIN TIME 26.8 SECONDS (22.0-34.0); PROTHROMBIN TIME 11.1 SECONDS (9.0-11.5)
[2023-09-23 19:39] LABS: ALBUMIN 1.8 gm/dL (3.4-5.0); BILIRUBIN TOTAL 0.31 mg/dL (0.3-1.2); BILIRUBIN,CONJUGATED 0.1 mg/dL (0.0-0.2); BILIRUBIN,UNCONJUGATED 0.21 mg/dL (0.0-0.6); CALCIUM 8.1 mg/dL (8.5-10.1); CHOL HDL RATIO 1.7 (0-5.0); CREATININE SERUM 1.08 mg/dL (0.70-1.30); GFR 69.74; GLOBULINA 2.8 G/DL (2.4-3.5); POTASSIUM 3.4 mEq/L (3.5-5.1); TOTAL PROTEIN 4.6 gm/dL (6.4-8.2)
[2023-09-23] MEDS ORDERED: levoFLOXacin IN DEXTROSE 5 % 150 ML IV SCH (21:00)
[2023-09-24] MEDS ORDERED: MEROPENEM 500 MG/VIAL VIAL IV SCH
[2023-09-24] MEDS ORDERED: INSULIN GLARGINE,HUM.REC.ANLOG 1,000 UNITS/10 ML UNITS SUBCUTANEO SCH (09:00)
[2023-09-25] MEDS ORDERED: HEPARIN SODIUM,PORCINE 500 UNITS/5 ML VIAL IV ONE ×2 (11:04→11:15)
[2023-09-25] MEDS ORDERED: LIDOCAINE HCL 1% 200MG/20ML VIAL IJ ONE (16:45)
[2023-09-25] MEDS ORDERED: SOD FERRIC GLUC COMPLX/SUCROSE 62.5 MG/5 ML AMPUL IV SCH (18:13)
[2023-09-25] MEDS ORDERED: VITAMIN B COMPLEX 1 EACH PO SCH (18:13)
[2023-09-25] MEDS ORDERED: Cyanocobalamin/Mecobalamin 1 TAB.SL SL SCH (18:13)
[2023-09-25] MEDS ORDERED: CEFTAZIDIME/AVIBACTAM 2.5 GM VIAL IV SCH (21:00)
[2023-09-26] MEDS ORDERED: 0.9 % SODIUM CHLORIDE 10 ML VIAL IJ ONE (08:55)
[2023-09-26] MEDS ORDERED: EPOETIN ALFA-EPBX 10,000 UNIT/ML VIAL (Retacrit) SUBCUTANEO SCH (09:00)
[2023-09-26] MEDS ORDERED: MIDODRINE HCL 10 MG TABLET PO SCH (13:00)
[2023-09-26] MEDS ORDERED: INSULIN GLARGINE,HUM.REC.ANLOG 1,000 UNITS/10 ML UNITS SUBCUTANEO SCH (21:00)
[2023-09-27] MEDS ORDERED: OxyCODONE HCL/APAP UD (PERCOCET) PO ONE (10:15)
[2023-09-27] MEDS ORDERED: Pregabalin 50 MG CAPSULE PO ONE (10:15)
[2023-09-27] MEDS ORDERED: LIDOCAINE HCL/EPINEPHRINE 20 ML VIAL IJ ONE (10:45)
[2023-09-27] MEDS ORDERED: HEPARIN SODIUM,PORCINE 500 UNITS/5 ML VIAL IV ONE (15:15)
[2023-09-28 10:36] LABS: ALBUMIN 1.6 gm/dL (3.4-5.0); BILIRUBIN TOTAL 0.32 mg/dL (0.3-1.2); CALCIUM 7.6 mg/dL (8.5-10.1); CREATININE SERUM 0.77 mg/dL (0.70-1.30); GFR 103.05; GLOBULINA 2.2 G/DL (2.4-3.5); POTASSIUM 3.52 mEq/L (3.5-5.1); TOTAL PROTEIN 3.8 gm/dL (6.4-8.2)
[2023-09-28] MEDS ORDERED: FAMOtidine 20 MG TABLET PO SCH (21:00)
[2023-09-28] MEDS ORDERED: VANCOMYCIN HCL 1,000 MG VIAL IV SCH (22:20)
[2023-09-29] MEDS ORDERED: VANCOMYCIN HCL 5 MG/ML REDILUIDO IV SCH (09:00)
[2023-09-29 09:53] LABS: HEMATOCRIT 31.8 % (39.0-48.0); HEMOGLOBIN 10.2 g/dL (13-16.00); MEAN CELL VOLUME 77.6 fL (80.0-100.00); MEAN CORPUSCULAR HEMOGLOBIN 24.8 pg (27.00-32.0); PLATELET COUNT 156 K/uL (150-450); RED CELL DISTRIBUTION WIDTH 18.8 % (11.5-14.5)
[2023-09-30] MEDS ORDERED: INSULIN REGULAR, HUMAN 300 UNITS/3 ML UNITS SUBCUTANEO SCH (12:00)
[2023-10-01] MEDS ORDERED: (FF) Daptomycin 50 MG/ML IV SCH (09:00)
[2023-10-02] MEDS ORDERED: Pregabalin 50 MG CAPSULE PO PRN (12:19)
[2023-10-02] MEDS ORDERED: DEXTROSE 5 % IN WATER 250 ML IV ONE (15:45)
[2023-10-02] MEDS ORDERED: OxyCODONE HCL/APAP UD (PERCOCET) PO PRN (19:30)
[2023-10-03] MEDS ORDERED: NOREPINEPHRINE BITARTRATE 1 MG/ML AMPUL IV ONE (15:39)
[2023-10-03] MEDS ORDERED: NOREPINEPHRINE BITARTRATE 8 MG in DEXTROSE 5 % IN WATER 250 ML IV SCH (15:45)
[2023-10-03] MEDS ORDERED: EPOETIN ALFA-EPBX 10,000 UNIT/ML 2ML VIAL SUBCUTANEO SCH (17:00)
[2023-10-03 18:49] LABS: ABG PH 7.522 (7.35-7.45)
[2023-10-03 18:50] LABS: ABG PO2 189.6 mmHg (80-100); ABG pCO2 17.6 mmHg (35-45); BASE EXCESS -5.6 mmol/l; BICARBONATE 14.1 mmol/l (23-25); SaO2 99.7 %; Tco2 14.7 mmol/l; allen test SATISFACTORY; o2 32 %; puncture site RADIAL LEFT
[2023-10-03] MEDS ORDERED: PHENYLEPHRINE HCL 10 MG/ML AMPUL IV SCH (19:15)
[2023-10-03] MEDS ORDERED: PHENYLEPHRINE HCL 20 MG in 0.9 % SODIUM CHLORIDE 250 ML IV SCH (19:45)
[2023-10-04] MEDS ORDERED: CEFTAZIDIME/AVIBACTAM 1.25GM/100ML NSS PB IV SCH (01:00)
[2023-10-04] MEDS ORDERED: AMINO ACIDS/PROTEIN HYDROLYS 30 ML BLIST.PACK PO SCH (09:00)
== END 2023-10-04 02:21 | disposition expired | DRG 802 ==
LOC: ER 13:52 → ICU 22:36 → ICU-2 22:36 → ICU 09-23 02:16 → SURH 10-02 21:37 → ICU 10-03 18:45
PROVIDERS: Emergency Medicine; General Practice; ADMIT Internal Medicine; ATTEND Internal Medicine
PROC: 30233N1 Transfusion of Nonautologous Red Blood Cells into Peripheral Vein, Percutaneous Approach (ICD-10-PCS; 2023-09-23)
PROC: 07B63ZX Excision of Left Axillary Lymphatic, Percutaneous Approach, Diagnostic (ICD-10-PCS; principal; 2023-09-27)
PROC: 0JBF3ZX Excision of Left Upper Arm Subcutaneous Tissue and Fascia, Percutaneous Approach, Diagnostic (ICD-10-PCS; 2023-09-27)
PROC: 4A12X4Z Monitoring of Cardiac Electrical Activity, External Approach (ICD-10-PCS; 2023-10-03)
DX: D64.9 Anemia, unspecified (principal); A41.9 Sepsis, unspecified organism; N39.0 Urinary tract infection, site not specified; L03.113 Cellulitis of right upper limb; C90.00 Multiple myeloma not having achieved remission; I46.9 Cardiac arrest, cause unspecified; L89.159 Pressure ulcer of sacral region, unspecified stage; R57.1 Hypovolemic shock; E86.0 Dehydration; E78.5 Hyperlipidemia, unspecified; E03.9 Hypothyroidism, unspecified; Z74.01 Bed confinement status; D69.6 Thrombocytopenia, unspecified; I83.009 Varicose veins of unspecified lower extremity with ulcer of unspecified site; E66.01 Morbid (severe) obesity due to excess calories; E11.65 Type 2 diabetes mellitus with hyperglycemia; Z79.4 Long term (current) use of insulin; I25.10 Atherosclerotic heart disease of native coronary artery without angina pectoris; I11.9 Hypertensive heart disease without heart failure; Z95.1 Presence of aortocoronary bypass graft; B96.1 Klebsiella pneumoniae [K. pneumoniae] as the cause of diseases classified elsewhere; B96.5 Pseudomonas (aeruginosa) (mallei) (pseudomallei) as the cause of diseases classified elsewhere